=== PATIENT | female | born 1935 | race Two or more races ===

== ENCOUNTER 2022-01-23 08:20 | Inpatient (IN) | payer OTHER ==
[~2022-01-23] VITALS: Ht 101.6 cm; Wt 91.6 kg
[2022-01-23] MEDS ORDERED: LEVOTHYROXINE25 MCG PO (08:27)
[2022-01-23] MEDS ORDERED: GRALISE600 MG PO (08:27)
[2022-01-23] MEDS ORDERED: VASOFLEX D1 CA1 EACH PO (08:27)
[2022-01-23] MEDS ORDERED: CHILDREN'S ASPI81 MG PO (08:28)
[2022-01-23] MEDS ORDERED: FUROSEMIDE5 GM MC (08:28)
[2022-01-23] MEDS ORDERED: ATORVASTATIN CA10 MG PO (08:28)
[2022-01-23] MEDS ORDERED: VITAMIN D310 MCG/1 M PO (08:29)
== END 2022-01-28 18:58 | disposition home or self-care (01) | DRG 387 ==
LOC: ER 08:20 → SEC-K 15:38 → SURH 15:38
PROVIDERS: ADMIT Internal Medicine; ATTEND Internal Medicine
PROC: 02HV33Z Insertion of Infusion Device into Superior Vena Cava, Percutaneous Approach (ICD-10-PCS; principal; 2022-01-25)
DX: K51.50 Left sided colitis without complications (principal); E11.65 Type 2 diabetes mellitus with hyperglycemia; K59.09 Other constipation; K46.9 Unspecified abdominal hernia without obstruction or gangrene